=== PATIENT | male | born 1965 | race Caucasian/White ===

== ENCOUNTER 2022-07-02 20:53 | Emergency (ER) | payer OTHER ==
[~2022-07-02] VITALS: Ht 175.3 cm; Wt 93.5 kg
[2022-07-02 21:11] VITALS: BP 174/122
--- NOTE | 2022-07-02 21:15 | NUR ---
pt to bed 12 with urine cup in hand.
[2022-07-02] MEDS ORDERED: NACL 0.9% 1,000 ML IV ONE (21:25)
[2022-07-02] MEDS ORDERED: KETOROLAC 30 MG/ML VIAL IVP ONE (21:25)
--- NOTE | 2022-07-02 21:30 | NUR ---
56/M BIB SELF C/C 04/30 "SQUEEZING" INTERMITTENT FLANK PAIN. PATIENT REPORTS EPISODES OF NAUSEA. DENIES ANY OTHER URINARY SYMPTOMS/V/D/C. PATIETN TOOK IBUPROFEN 600MG X30MIN MOUNTER BRASS WIND INSTRUMENTS WITH LITTLE RELIEF. PATIETN REPORTS CONCERN DUE TO HAVING HX KIDNEY STONES 7-8YEARS AND STATED THAT PAIN FELT SIMILAR. BP 163/100, STATED THAT HE HASNT TAKEN BP MED. USUALLY TAKES AT BEDTIME. PATIETN PLACED IN BED AND MONITOR. BED LOW AND LOCKED WITH SIDE RAIL UP X1 FOR SAFETY. ALL NEEDS MET . PMHX HTN, KIDNEY STONES, PRE DM NKA
--- NOTE | 2022-07-02 21:40 | NUR ---
IV ESTABLISHED 20G RIGHT AC. IVF AND MEDICATED GIVEN. TOLERATED WELL.
[2022-07-02] MEDS ORDERED: ONDANSETRON 4 MG/2 ML VIAL IVP ONE ×2 (22:10→22:40)
--- NOTE | 2022-07-02 22:10 | NUR ---
PATIENT STATED HE WAS FEELING NAUSEATED. MD MADE AWARE.
[2022-07-02] MEDS ORDERED: MORPHINE SULFATE 4 MG/ML SYR IVP ONE (22:35)
--- NOTE | 2022-07-02 22:47 | NUR ---
RAD AT BEDSIDE
[2022-07-02 22:50] LABS: BASOPHILS # (AUTO) 0.1 K/uL (0.00-0.22); BASOPHILS % (AUTO) 0.7 % (0.0-2.0); EOSINOPHILS # (AUTO) 0.5 K/uL (0-0.4); EOSINOPHILS % (AUTO) 4.3 % (0.0-4.0); HEMOGLOBIN 14.6 g/dL (12.0-18.0); LYMPHOCYTES # (AUTO) 2.1 K/uL (2.0-11.5); LYMPHOCYTES % (AUTO) 17.2 % (20.5-51.1); MEAN CORPUSCULAR HEMOGLOBIN 28 pg (27-31); MEAN CORPUSCULAR HGB CONC 33 g/dL (33-37); MEAN CORPUSCULAR VOLUME 83.8 fL (80-94); MONOCYTES # (AUTO) 0.9 K/uL (0.8-1.0); MONOCYTES % (AUTO) 7.4 % (1.7-9.3); NEUTROPHILS # (AUTO) 8.4 K/uL (1.8-7.7); NEUTROPHILS % (AUTO) 70.4 % (42.2-75.2); PLATELET COUNT (AUTO) 292 K/uL (140-450); RED BLOOD CELL COUNT(AUTO) 5.25 MIL/uL (4.20-6.10); RED CELL DISTRIBUTION WIDTH 15.7 % (11.6-13.7); WHITE BLOOD COUNT (AUTO) 11.9 K/uL (4.8-10.8)
--- NOTE | 2022-07-02 22:56 | NUR ---
PT RETURNED FROM CT VIA W/C
--- NOTE | 2022-07-02 23:00 | NUR ---
PATIENT MEDICATED PER ORDERS. TOLERATED WELL.
[2022-07-02 23:15] LABS: ALBUMIN 3.3 g/dL (3.4-5.0); CARBON DIOXIDE 23.1 mmol/L (21-32); CREATININE 1.1 mg/dL (0.6-1.3); POTASSIUM 4.1 mmol/L (3.5-5.1); TOTAL BILIRUBIN 0.4 mg/dL (0.0-1.0)
[2022-07-02] MEDS ORDERED: ONDA-188 PO (23:31)
[2022-07-02] MEDS ORDERED: ACET-8386 PO (23:31)
[2022-07-02] MEDS ORDERED: NAPR-54 PO (23:31)
--- NOTE | 2022-07-02 23:43 | NUR ---
JUAN TAPIA AT BEDSIDE
[2022-07-03 00:04] VITALS: BP 161/105
--- NOTE | 2022-07-03 00:04 | NUR ---
Patient discharged with v/s stable. Written and verbal after care instructions given and explained. Patient alert, oriented and verbalized understanding of instructions. Ambulatory with steady gait. All questions addressed prior to discharge. ID band removed. Patient advised to follow up with PMD. Rx of HYDROCODONE-ACETAMINOPHEN, NAPROXEN, AND ZOFRAN given. Patient educated on indication of medication including possible reaction and side effects. Opportunity to ask questions provided and answered.
== END 2022-07-03 00:04 | disposition home or self-care (01) ==
LOC: MED 20:53
DX: M54.50 Low back pain, unspecified (principal); I10 Essential (primary) hypertension; N20.0 Calculus of kidney; Z79.899 Other long term (current) drug therapy
CPT/HCPCS: 36415; 74176; 80053; 81002; 83690; 85025; 96361; 96374; 96375; 96376; 99284; J1885; J2270; J2405; J7030